=== PATIENT | female | born 1940 | race African-American/Black ===

== ENCOUNTER 2018-10-13 19:33 | Emergency (ER) | payer OTHER ==
[~2018-10-13] VITALS: Ht 175.3 cm; Wt 51.0 kg
[2018-10-13 23:33] LABS: BASOPHILS % 0.6 % (0.0-2.0); EOSINOPHILS % 0.5 % (0.0-5.0); HEMATOCRIT. 36.6 % (36.0-48.0); HEMOGLOBIN. 12.5 g/dL (12.0-16.0); LYMPHOCYTES % 14.3 % (20.0-50.0); MEAN CORPUSCULAR HEMOGLOBIN 28.2 pg (28.0-32.0); MEAN CORPUSCULAR VOLUME 82.8 fL (81.0-99.0); MEAN PLATELET VOLUME 6.5 fl (7.4-10.4); MONOCYTES % 10.1 % (2.0-8.0); NEUTROPHILS % 74.5 % (40.0-76.0); PLATELET 378 x1000/uL (130-400); RED BLOOD CELL COUNT 4.42 mill/uL (4.2-5.4); RED CELL DISTRIBUTION WIDTH 14.6 % (11.6-14.6)
[2018-10-13 23:39] LABS: CHLORIDE 104 mEq/L (98-107)
[2018-10-14] MEDS ORDERED: ASPIRIN 325MG EC TABLET PO ONE (00:30)
[2018-10-14] MEDS ORDERED: HEPARIN 5000 UNITS/ML VIAL IV SCH (00:30)
[2018-10-14] MEDS ORDERED: HEPARIN 25,000 UNITS PREMIX 500 ML IV PRN (00:30)
[2018-10-14] MEDS ORDERED: HEPARIN 5000 UNITS/ML VIAL IV PRN ×2 (00:30)
[2018-10-14 00:45] VITALS: BP 131/67
[2018-10-14 00:54] LABS: INR 1.1; PARTIAL THROMBOPLASTIN TIME 29.9 sec (23.4-31.0); PROTHROMBIN TIME 10.9 sec (9.1-11.1)
[2018-10-14] MEDS ORDERED: EPINEPHRINE 0.1MG/ML (1:10,000) 10ML SYR ONE (01:16)
== END 2018-10-14 01:18 | disposition short-term general hospital (02) ==
LOC: ER 19:33
DX: I21.3 ST elevation (STEMI) myocardial infarction of unspecified site (principal); F03.90 Unspecified dementia, unspecified severity, without behavioral disturbance, psychotic disturbance, mood disturbance, and anxiety; R10.13 Epigastric pain; R19.7 Diarrhea, unspecified; E78.00 Pure hypercholesterolemia, unspecified; I10 Essential (primary) hypertension
CPT/HCPCS: 36415; 80053; 83605; 83690; 84484; 85025; 85610; 85730; 93005; 96374; 99285; J1644; J3490

== ENCOUNTER 2018-11-04 19:21 | Emergency (ER) | payer OTHER ==
[~2018-11-04] VITALS: Ht 165.1 cm; Wt 45.0 kg
[2018-11-04 23:42] VITALS: BP 112/82
== END 2018-11-04 23:44 | disposition home or self-care (01) ==
LOC: ER 19:21
DX: I25.2 Old myocardial infarction (principal); I50.9 Heart failure, unspecified; E78.00 Pure hypercholesterolemia, unspecified; K21.9 Gastro-esophageal reflux disease without esophagitis; F03.90 Unspecified dementia, unspecified severity, without behavioral disturbance, psychotic disturbance, mood disturbance, and anxiety; F17.200 Nicotine dependence, unspecified, uncomplicated; Z95.5 Presence of coronary angioplasty implant and graft
CPT/HCPCS: 99283

== ENCOUNTER → 2019-01-24 | Outpatient (CLI) | payer OTHER, MEDICARE | END | disposition home or self-care (01) | LOC: CT 10:04 | PROVIDERS: ATTEND Internal Medicine Nephrology | DX: I67.82 Cerebral ischemia (principal); G31.9 Degenerative disease of nervous system, unspecified; R90.82 White matter disease, unspecified; I73.9 Peripheral vascular disease, unspecified | CPT/HCPCS: 93923 ==

== ENCOUNTER 2019-05-16 21:58 | Emergency (ER) | payer OTHER ==
[~2019-05-16] VITALS: Ht 162.6 cm; Wt 48.7 kg
[~2019-05-16 21:58] MED LIST: ASPI-1393 MT; ATOR-2 MT; MAGN400C PO; PANT20TA3 MT; TICA90TA MT
[2019-05-17 00:43] LABS: BASOPHILS % 0.5 % (0.0-2.0); EOSINOPHILS % 1.5 % (0.0-5.0); HEMATOCRIT. 27.8 % (36.0-48.0); HEMOGLOBIN. 9.5 g/dL (12.0-16.0); LYMPHOCYTES % 21.1 % (20.0-50.0); MEAN CORPUSCULAR HEMOGLOBIN 26.5 pg (28.0-32.0); MEAN CORPUSCULAR VOLUME 77.2 fL (81.0-99.0); MEAN PLATELET VOLUME 7.2 fl (7.4-10.4); NEUTROPHILS % 63.9 % (40.0-76.0); PLATELET 455 x1000/uL (130-400); RED CELL DISTRIBUTION WIDTH 18.1 % (11.6-14.6)
[2019-05-17 00:46] LABS: CHLORIDE 108 mEq/L (98-107)
[2019-05-17 03:49] VITALS: BP 137/71
== END 2019-05-17 03:52 | disposition home or self-care (01) ==
LOC: ER 21:58
DX: S09.8XXA Other specified injuries of head, initial encounter (principal); F03.90 Unspecified dementia, unspecified severity, without behavioral disturbance, psychotic disturbance, mood disturbance, and anxiety; I25.2 Old myocardial infarction; R62.7 Adult failure to thrive; Z87.891 Personal history of nicotine dependence; Z79.82 Long term (current) use of aspirin; Z90.710 Acquired absence of both cervix and uterus; Z68.1 Body mass index [BMI] 19.9 or less, adult; W01.0XXA Fall on same level from slipping, tripping and stumbling without subsequent striking against object, initial encounter; Y93.89 Activity, other specified; Y92.018 Other place in single-family (private) house as the place of occurrence of the external cause
CPT/HCPCS: 36415; 71045; 84484; 93005; 99284

== ENCOUNTER 2019-05-27 19:57 | Inpatient (IN) | payer OTHER, MEDICAID ==
[~2019-05-27] VITALS: Ht 162.6 cm; Wt 48.1 kg
[~2019-05-27 19:57] MED LIST changes: -ASPI-1393 MT; +ASPI-1393 PO; -ATOR-2 MT; +ATOR-2 PO; -PANT20TA3 MT; +PANT20TA3 PO; -TICA90TA MT; +TICA90TA PO
[2019-05-27] MEDS ORDERED: SODIUM CHLORIDE 0.9% 500 ML IV ONE (21:30)
[2019-05-27 21:37] LABS: BASOPHILS % 0.7 % (0.0-2.0); EOSINOPHILS % 1.5 % (0.0-5.0); HEMATOCRIT. 32.2 % (36.0-48.0); HEMOGLOBIN. 10.7 g/dL (12.0-16.0); LYMPHOCYTES % 10.7 % (20.0-50.0); MEAN CORPUSCULAR HEMOGLOBIN 25.7 pg (28.0-32.0); MEAN CORPUSCULAR VOLUME 77.2 fL (81.0-99.0); MEAN PLATELET VOLUME 7.2 fl (7.4-10.4); NEUTROPHILS % 77.1 % (40.0-76.0); PLATELET 417 x1000/uL (130-400); RED BLOOD CELL COUNT 4.17 mill/uL (4.2-5.4); RED CELL DISTRIBUTION WIDTH 18.4 % (11.6-14.6)
[2019-05-27 21:41] LABS: CHLORIDE 107 mEq/L (98-107)
[2019-05-27 21:43] LABS: PROTHROMBIN TIME 10.5 sec (9.6-11.0)
[2019-05-27 21:58] LABS: CLARITY URINE CLOUDY (CLEAR); COLOR URINE YELLOW (YELLOW); KETONES URINE TRACE (NEGATIVE); LEUKOCYTE ESTERASE URINE TRACE (NEGATIVE); NITRITE URINE NEGATIVE (NEGATIVE); OCCULT BLOOD URINE NEGATIVE (NEGATIVE); PROTEIN URINE 2+ (NEGATIVE); SPECIFIC GRAVITY URINE 1.018 (1.005-1.030)
[2019-05-27] MEDS ORDERED: PIPERACILLIN/TAZ 3.375G PREMIX 50 ML IV ONE (22:30)
[2019-05-27] MEDS ORDERED: SODIUM CHLORIDE 0.9% 1000ML BAG (SEPSIS BOLUS) IV ONE (22:30)
[2019-05-27 23:55] VITALS: BP 147/68
[2019-05-28] VITALS: BP 147/68
[2019-05-28] MEDS ORDERED: CARBOXYMETHYLCELLULOS EACHEYE PRN (01:30)
[2019-05-28] MEDS ORDERED: CEFTRIAXONE 1 G PREMIX 50 ML IV SCH ×2 (01:30→06:00)
[2019-05-28] MEDS ORDERED: GLYCERIN EACHEYE PRN (01:30)
[2019-05-28] MEDS ORDERED: ACETAMINOPHEN 325MG TABLET PO PRN (01:30)
[2019-05-28] MEDS ORDERED: [UNRECOGNIZED DRUG - OTHER] EACHEYE PRN (01:30)
[2019-05-28] MEDS ORDERED: MULT-1146 PO (01:37)
[2019-05-28] MEDS ORDERED: CARB15DR2 EACHEYE (01:37)
[2019-05-28] MEDS: DEXT 5%/0.45% NACL 1000ML 1,000 ML IV SCH ×2 (02:50→15:51)
[2019-05-28 04:00] VITALS: BP 136/61
[2019-05-28] MEDS ORDERED: PNEUMOCOCCAL 23-VAL P-SAC VAC 0.5 ML IM ONE (05:30)
[2019-05-28 07:13] LABS: CHLORIDE 112 mEq/L (98-107)
[2019-05-28 07:19] LABS: HEMATOCRIT. 27.5 % (36.0-48.0); HEMOGLOBIN. 9.4 g/dL (12.0-16.0); MEAN CORPUSCULAR HEMOGLOBIN 26.2 pg (28.0-32.0); MEAN CORPUSCULAR VOLUME 76.9 fL (81.0-99.0); MEAN PLATELET VOLUME 7.3 fl (7.4-10.4); PLATELET 357 x1000/uL (130-400); RED BLOOD CELL COUNT 3.58 mill/uL (4.2-5.4); RED CELL DISTRIBUTION WIDTH 17.8 % (11.6-14.6)
[2019-05-28 07:21] LABS: LDL CHOLESTEROL 71 mg/dL (5-100)
[2019-05-28 07:22] LABS: HDL CHOLESTEROL 61 mg/dL (40-59)
[2019-05-28 08:00] VITALS: BP 146/73
[2019-05-28] MEDS: ASPIRIN 81MG EC TABLET PO SCH (08:52)
[2019-05-28] MEDS: TICAGRELOR 90 MG TABLET PO SCH ×2 (08:53→20:24)
[2019-05-28] MEDS: MAGNESIUM OXIDE 400MG TABLET PO SCH (08:53)
[2019-05-28] MEDS: MULTIVITAMINS,THER W-MINERALS TABLET PO SCH (08:53)
[2019-05-28] MEDS: PANTOPRAZOLE 40MG DR TABLET PO SCH (08:53)
[2019-05-28] MEDS ORDERED: POTASSIUM CHLORIDE 20MEQ/PACKET PO NR (10:00)
[2019-05-28 11:46] LABS: CREATINE KINASE 68 IU/L (26-192)
[2019-05-28 11:47] LABS: CREATINE KINASE MB FRACTION < 1.0 ng/mL (0.5-3.6)
[2019-05-28 12:00] VITALS: BP 132/58
[2019-05-28 13:53] LABS: PLATELET ESTIMATE NORMAL
[2019-05-28] MEDS ORDERED: LORAZEPAM 2MG/ML CPJ IV PRN (14:00)
[2019-05-28] MEDS ORDERED: BISACODYL 10MG SUPP PR PRN (14:00)
[2019-05-28] MEDS ORDERED: HYDROCODONE/ACETAMINOPHEN 5/325MG TABLET PO PRN (14:00)
[2019-05-28] MEDS ORDERED: DIPHENHYDRAMINE 50MG/ML VIAL IV PRN (14:00)
[2019-05-28] MEDS ORDERED: IPRATROPIUM/ALBUTEROL 0.5-3(2.5)MG/3ML NEB HHN PRN (14:00)
[2019-05-28 16:00] VITALS: BP_SYST 132; BP_SYST 159; BP_DIAS 58; BP_DIAS 89
[2019-05-28 20:05] VITALS: BP 146/66
[2019-05-28] MEDS: ATORVASTATIN CALCIUM 40MG TABLET PO SCH (20:24)
[2019-05-29 00:05] VITALS: BP 124/60
[2019-05-29 04:00] VITALS: BP 146/71
[2019-05-29] MEDS: DEXT 5%/0.45% NACL 1000ML 1,000 ML IV SCH ×2 (05:27→20:24)
[2019-05-29] MEDS: CEFTRIAXONE 1,000 MG in DEXTROSE 5% WATER 50 ML IV SCH (05:27)
[2019-05-29 05:48] LABS: CHLORIDE 111 mEq/L (98-107)
[2019-05-29 05:54] LABS: HEMATOCRIT 29.9 % (36.0-48.0); HEMOGLOBIN 9.9 g/dL (12.0-16.0); MEAN CORPUSCULAR HEMOGLOBIN 25.5 pg (28.0-32.0); MEAN CORPUSCULAR VOLUME 76.9 fL (81.0-99.0); PLATELET 387 x1000/uL (130-400); RED BLOOD CELL COUNT 3.89 mill/uL (4.2-5.4)
[2019-05-29 08:00] VITALS: BP 163/66
[2019-05-29] MEDS ORDERED: PROPYLENE GLYCOL/PEG 400 OPTH DROPS OP PRN (09:00)
[2019-05-29] MEDS: MULTIVITAMINS,THER W-MINERALS TABLET PO SCH (09:05)
[2019-05-29] MEDS: ASPIRIN 81MG EC TABLET PO SCH (09:05)
[2019-05-29] MEDS: MAGNESIUM OXIDE 400MG TABLET PO SCH (09:05)
[2019-05-29] MEDS: PANTOPRAZOLE 40MG DR TABLET PO SCH (09:05)
[2019-05-29] MEDS: TICAGRELOR 90 MG TABLET PO SCH ×2 (09:05→20:46)
[2019-05-29] MEDS ORDERED: POTASSIUM CHLORIDE 20MEQ/PACKET PO NR (11:15)
[2019-05-29] MEDS ORDERED: REGADENOSON 0.4 MG/5 ML IV ONE (11:30)
[2019-05-29 12:00] VITALS: BP 167/73
[2019-05-29] MEDS: AMLODIPINE 5MG TABLET PO SCH (13:04)
[2019-05-29 16:00] VITALS: BP 172/84
[2019-05-29] MEDS ORDERED: ENALAPRIL 2.5MG/2ML VIAL 2ML IV NR (17:30)
[2019-05-29 20:00] VITALS: BP 132/64
[2019-05-29] MEDS: ATORVASTATIN CALCIUM 40MG TABLET PO SCH (20:46)
[2019-05-30] VITALS: BP 115/53
[2019-05-30 04:00] VITALS: BP 124/71
[2019-05-30 05:38] LABS: BASOPHILS % 0.4 % (0.0-2.0); EOSINOPHILS % 3.7 % (0.0-5.0); HEMATOCRIT. 29.7 % (36.0-48.0); MEAN CORPUSCULAR HEMOGLOBIN 25.9 pg (28.0-32.0); MEAN CORPUSCULAR VOLUME 76.8 fL (81.0-99.0); MEAN PLATELET VOLUME 7.4 fl (7.4-10.4); MONOCYTES % 10.8 % (2.0-8.0); NEUTROPHILS % 67.1 % (40.0-76.0); PLATELET 378 x1000/uL (130-400); RED BLOOD CELL COUNT 3.87 mill/uL (4.2-5.4); RED CELL DISTRIBUTION WIDTH 18.1 % (11.6-14.6)
[2019-05-30] MEDS: CEFTRIAXONE 1,000 MG in DEXTROSE 5% WATER 50 ML IV SCH (06:24)
[2019-05-30 06:33] LABS: CHLORIDE 108 mEq/L (98-107)
[2019-05-30 08:00] VITALS: BP 132/66
[2019-05-30] MEDS: PANTOPRAZOLE 40MG DR TABLET PO SCH (08:19)
[2019-05-30] MEDS ORDERED: REGADENOSON 0.4 MG/5 ML IV ONE (10:38)
[2019-05-30 12:00] VITALS: BP 151/69
[2019-05-30] MEDS ORDERED: POTASSIUM CHLORIDE 20MEQ/PACKET PO SCH (12:00)
[2019-05-30] MEDS: AMLODIPINE 5MG TABLET PO SCH (13:09)
[2019-05-30] MEDS: ASPIRIN 81MG EC TABLET PO SCH (13:09)
[2019-05-30] MEDS: MULTIVITAMINS,THER W-MINERALS TABLET PO SCH (13:09)
[2019-05-30] MEDS: MAGNESIUM OXIDE 400MG TABLET PO SCH (13:09)
[2019-05-30] MEDS: TICAGRELOR 90 MG TABLET PO SCH (13:10)
[2019-05-30] MEDS: DEXT 5%/0.45% NACL 1000ML 1,000 ML IV SCH (13:11)
[2019-05-30] MEDS ORDERED: CEPH-569 MT (14:46)
[2019-05-30 16:00] VITALS: BP 152/68
[2019-05-30 20:12] VITALS: BP 125/66
== END 2019-05-30 20:46 | disposition home or self-care (01) | DRG 73 ==
LOC: ER 20:10 → 7WST 22:47 → EDBEDREQ 22:49 → EDBEDREQTM 22:49 → CANRESERV 23:09 → ENRESERV 23:09
PROVIDERS: ADMIT Internal Medicine; ATTEND Internal Medicine
DX: G90.8 Other disorders of autonomic nervous system (principal); I50.33 Acute on chronic diastolic (congestive) heart failure; N39.0 Urinary tract infection, site not specified; E87.2 Acidosis; G93.40 Encephalopathy, unspecified; I11.0 Hypertensive heart disease with heart failure; E78.5 Hyperlipidemia, unspecified; J44.9 Chronic obstructive pulmonary disease, unspecified; E87.6 Hypokalemia; I25.10 Atherosclerotic heart disease of native coronary artery without angina pectoris; F03.90 Unspecified dementia, unspecified severity, without behavioral disturbance, psychotic disturbance, mood disturbance, and anxiety; I25.2 Old myocardial infarction; Z90.710 Acquired absence of both cervix and uterus; Z95.5 Presence of coronary angioplasty implant and graft; Z79.02 Long term (current) use of antithrombotics/antiplatelets; Z87.891 Personal history of nicotine dependence; Z79.82 Long term (current) use of aspirin; Z79.899 Other long term (current) drug therapy
CPT/HCPCS: 36415; 70551; 71045; 78452; 80048; 80061; 81003; 82140; 82550; 82553; 82962; 83605; 83880; 84484; 85027; 85379; 90732; 93005; 93017; 93880; 96361; 96365; 97162; 99291; A9500; J0696; J2543; J2785; J3490; J7030; J7040; J7060; J8499